=== PATIENT | female | born 1970 | race Hispanic/Latino ===

== ENCOUNTER → 2019-11-11 | Outpatient (CLI) | payer BC ==
[~2019-11-11] MED LIST: ASPI-1005 PO; BISA5TAB12 PO; CALC-1205 PO; CHOL50004 PO; LACT0.5T PO; LINA145C PO; PRAV40TA3 PO; TAMO20TA4 PO
[2019-11-11 13:17] LABS: BASOPHILS % (AUTO) 0.3 % (0.0-5.0); EOSINOPHILS % (AUTO) 0.9 % (0.0-8.0); HEMATOCRIT 40.2 % (36-48); LYMPHOCYTES % (AUTO) 15.9 % (21.0-51.0); MEAN CORPUSCULAR HGB CONC 33.6 g/dL (32.0-36.0); MEAN CORPUSCULAR VOLUME 86.3 fL (79-99); MONOCYTES % (AUTO) 5.1 % (3.0-13.0); NEUTROPHILS % (AUTO) 77.7 % (40.0-77.0); PLATELET COUNT (AUTO) 242 K/uL (130-400); RED BLOOD CELL COUNT(AUTO) 4.66 MIL/uL (4.00-5.50); RED CELL DISTRIBUTION WIDTH 12.6 % (11.0-15.5)
[2019-11-11 13:27] LABS: ALANINE AMINOTRANSFERASE 58 U/L (12-78); ASPARTATE AMINOTRANSFERASE 14 U/L (10-37)
== END | disposition home or self-care (01) ==
LOC: LAB 12:17
PROVIDERS: ATTEND Psychiatry & Neurology Neurology
DX: G12.21 Amyotrophic lateral sclerosis (principal)
CPT/HCPCS: 36415; 84450; 84460; 85025

== ENCOUNTER → 2019-11-14 | Outpatient (CLI) | payer BC | END | disposition home or self-care (01) | LOC: SLP 20:28 | PROVIDERS: ATTEND Internal Medicine | DX: G47.33 Obstructive sleep apnea (adult) (pediatric) (principal) | CPT/HCPCS: 95810 ==

== ENCOUNTER → 2019-11-25 | Outpatient (CLI) | payer BC | END | disposition home or self-care (01) | LOC: SLP 20:24 | PROVIDERS: ATTEND Internal Medicine | DX: G47.33 Obstructive sleep apnea (adult) (pediatric) (principal) | CPT/HCPCS: 95811 ==

== ENCOUNTER → 2019-12-21 | Outpatient (CLI) | payer BC ==
[~2019-12-21] MED LIST changes: +ALBUTEROL SULFATE 0.083% 2.5 MG/3 ML INH IH ONE
--- NOTE | 2019-12-21 11:34 | NUR ---
Unable to perform N2 Washout due to poor inspiratory effort. Addendum: 12/21/19 at 1135 by BINU MATUTE Amended: Links added.
== END | disposition home or self-care (01) ==
LOC: RESP 09:49
PROVIDERS: ATTEND Internal Medicine
DX: G12.21 Amyotrophic lateral sclerosis (principal); R05 Cough
CPT/HCPCS: 94060; 94729

== ENCOUNTER → 2020-02-15 | Outpatient (CLI) | payer BC, MEDICARE ==
[~2020-02-15] MED LIST changes: -ALBUTEROL SULFATE 0.083% 2.5 MG/3 ML INH IH ONE
--- NOTE | 2020-02-15 12:00 | NUR ---
MBSS COMPLETED. TRANSIENT PENETRATION WITH THIN VIA CUP. RECOMMEND MECHANICAL SOFT/GROUND SOLIDS, NECTAR THICK LIQUIDS TOLERATED. 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 GUN BARREL FINISHER EDUCATED Pt AND SON PRESENTS DURING EVALUATION ON RISKS AND CONSEQUENCES OF ASPIRATION. Pt WAS GIVEN A CAN OF THICKENER AND SHOWED HOW TO REACH NECTAR THICK CONSISTENCIES. ALL QUESTIONS ANSWERED AT THIS TIME. Addendum: 02/15/[address] MARY QUINTERO Amended: Links added.
== END | disposition home or self-care (01) ==
LOC: RAH 10:10
PROVIDERS: ATTEND Internal Medicine Gastroenterology
DX: R13.10 Dysphagia, unspecified (principal); R63.3 Feeding difficulties
CPT/HCPCS: 74230; 92611

== ENCOUNTER 2021-12-22 16:41 | Emergency (ER) | payer BC, MEDICARE ==
[~2021-12-22] VITALS: Ht 165.1 cm; Wt 73.5 kg
[2021-12-22 17:26] LABS: BASOPHILS % (AUTO) 0.6 % (0.0-5.0); EOSINOPHILS % (AUTO) 0.9 % (0.0-8.0); HEMATOCRIT 41.4 % (36-48); LYMPHOCYTES % (AUTO) 21.7 % (21.0-51.0); MEAN CORPUSCULAR HEMOGLOBIN 29.1 pg (27.0-33.0); MEAN CORPUSCULAR HGB CONC 33.1 g/dL (32.0-36.0); MEAN CORPUSCULAR VOLUME 88.1 fL (79-99); MONOCYTES % (AUTO) 13.2 % (3.0-13.0); NEUTROPHILS % (AUTO) 63.3 % (40.0-77.0); PLATELET COUNT (AUTO) 234 K/uL (130-400); RED CELL DISTRIBUTION WIDTH 12.5 % (11.0-15.5); WHITE BLOOD COUNT (AUTO) 6.9 K/uL (4.8-10.8)
[2021-12-22 17:47] LABS: ALBUMIN 3.9 g/dL (3.5-5.0); BILIRUBIN,TOTAL 0.3 mg/dL (0.2-1.0); CREATININE 0.4 mg/dL (0.5-1.5); TOTAL PROTEIN, SERUM 7.8 g/dL (6.0-8.3)
[2021-12-22] MEDS ORDERED: PREDNISONE 20 MG TABLET PEG ONE (18:30)
[2021-12-22] MEDS ORDERED: PRED20TA3 PEG (18:39)
[2021-12-22] MEDS ORDERED: PRED20TA3 PO (18:40)
[2021-12-22 19:11] VITALS: BP 126/76
== END 2021-12-22 19:25 | disposition home or self-care (01) ==
LOC: EDH 16:41
DX: U07.1 COVID-19 (principal); G12.21 Amyotrophic lateral sclerosis; Z79.52 Long term (current) use of systemic steroids; Z79.82 Long term (current) use of aspirin; Z85.3 Personal history of malignant neoplasm of breast
CPT/HCPCS: 36415; 71045; 80053; 83605; 84484; 85025; 87040; 87077; 87186; 87804; 93005